=== PATIENT | female | born 1930 | race Caucasian/White ===

== ENCOUNTER → 2016-09-17 | Outpatient (CLI) | payer MEDICARE, OTHER ==
[~2016-09-17] MED LIST: ACTOS30 MG PO; ATORVASTATIN CA80 MG PO; CENTRUM SILVER1 EAC2 PO; CITRACAL + D CA1 TA1 PO; CITRACAL200 MG PO; COQ-10200 MG PO; ECOTRIN325 MG PO; FISH OIL 1,0001 CAP PO; GABAPENTIN300 MG PO; GABAPENTIN600 MG PO; HYDRALAZINE HCL50 MG PO; HYDROCODON-ACE1 EAC1 PO; IMDUR PO; IMDUR-ER60 MG PO; LIPITOR80 MG PO; LISINOPRIL PO; LOPRESSOR PO; METOPROLOL TART25 MG PO; NAMENDA XR28 MG PO; NITROGLYCERIN0.4 MG SL; NITROQUICK0.4 MG SL; OMEPRAZOLE40 M1 PO; PERCOCET 5-3251 TAB PO; PHENERGAN25 MG PO; PRILOSEC PO; PRINIVIL40 MG PO; TRIAMCINOLONE A15 G2; TYLENOL325 M1 PO; VITAMIN D31000 UNI1 PO; ZOLOFT50 MG PO
--- NOTE | ~2016-09-17 | MY11 ---
[facility] A Service [facility] RADIOLOGY TEXT RESULTS PATIENT: EDWIGE SMITH LOCATION: [facility] : 30 UNIT #: [id number] AGE: [address]: Sheng Lam MD SEX: F ORDER DR: [id number] [facility] [address] [place], [place] [address] [id number] O MR#: [id number] Acc #: [id number] NAME: EDWIGE SMITH : 1930 SEX: F STUDY DATE/TIME: 09/17/2016 14:52 UNIT: [facility] ROOM: STUDY DESCRIPTION: MY Mammogram Screening Dig Juanito Attending Physician: Sheng Lam M.D. Referring Physician: Sheng Lam M.D. Ordering Physician: Sheng Lam M.D. Primary Care Physician: Sheng Lam M.D. MEDICAL IMAGING REPORT This report is preliminary unless electronic signature is present EXAM Bilateral digital screening mammogram with CAD 09/17/2016. HISTORY An 86-year-old female with no personal history of breast cancer. Positive family history of breast cancer. FINDINGS Background breast parenchyma consists of scattered fibroglandular densities. No suspicious mass, microcalcification, architectural distortion. The exam is compared to prior mammogram dated 09/15/2015. IMPRESSION Negative mammogram. BIRADS 1. RECOMMENDATIONS Annual screening mammogram Patients over the age of 40 are entered into a reminder system with target due date for the next mammogram. A result letter will also be sent to the patient. BIRADS: 1 Negative Dictated by... Thai Moise M.D. THIS IS AN ELECTRONICALLY VERIFIED REPORT Thai Moise M.D. at 09/18/2016 9:03 AM STEFF/vki [facility] A Service [facility] RADIOLOGY TEXT RESULTS PATIENT: EDWIGE SMITH LOCATION: [facility] : 30 UNIT #: [id number] AGE: [address]: Sheng Lam MD SEX: F ORDER DR: TD: 09/18/2016 00:34 JOB #: [id number] MEDICAL IMAGING REPORT Page 1 of 1 COPY
== END | disposition home or self-care (01) ==
LOC: CWCC 14:32
DX: Z12.31 Encounter for screening mammogram for malignant neoplasm of breast (principal); Z80.3 Family history of malignant neoplasm of breast
CPT/HCPCS: G0202

== ENCOUNTER → 2016-12-31 | Day surgery (SDC) | payer MEDICARE, OTHER ==
--- NOTE | ~2016-12-31 | OR ---
Unit #: [id number] #: [id number] Patient: EDWIGE SMITH [id number] [address] [place], [place] [address] [id number] O MR#: [id number] NAME: EDWIGE SMITH ROOM: Date of Procedure: 12/31/2016 Admission Date: 12/31/2016 Surgeon: Guru Yanez M.D. : 1930 Attending Physician: Guru Yanez M.D. Primary Care Physician: Sheng Lam M.D. 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 NAME OF PROCEDURE Excisional biopsy of a 4 cm posterior neck sebaceous cyst extending down into the posterior neck musculature and fascia. ANESTHESIA Local anesthetic with conscious sedation of 2 mg of morphine and 2 mg Versed. ESTIMATED BLOOD LOSS 20 mL. INDICATIONS FOR PROCEDURE Ms. Smith is a pleasant 86-year-old female, who had had a sebaceous cyst removed from her neck 10 years ago. She presented to my office with a very large recurrence that appeared to be infected. She was started on antibiotics and scheduled for an elective drainage and debridement, but in the interim, the infection progressed and she began to spontaneously drain and came back to the office. In the office, I was able to evacuate the acute infection as well as most of the sebum, but could not completely debride the cyst wall, so her antibiotics were continued along with local care, and she is brought in today for definitive resection of the cyst wall to prevent future recurrence. DESCRIPTION OF PROCEDURE The patient was admitted to [facility], positively identified transported to the operating room, and after appropriate monitoring and positioning, she was positioned in the lateral position with the affected left side of the neck elevated and exposed. She received Kefzol weight based IV antibiotic. The wound was irrigated and then prepped and draped in usual sterile fashion. Using a probe, I evaluated the extent of the cyst wall and then 1% lidocaine with epinephrine was infiltrated to create a field block. All this was being done, she received conscious sedation of 2 mg of morphine and 2 mg of Versed. The patient was very comfortable with this sedation. After field block had been performed and the extent of the cyst wall determined, a wedge excision to clean tissues was made around the cyst wall and we Unit #: [id number] #: [id number] Patient: EDWIGE SMITH dissected down to the muscular fascia and the muscle to completely excise the cyst wall en bloc. The clean open wound was then irrigated. Hemostasis was obtained. More local anesthetic was infiltrated for postop pain control to a total of 30 mL of 1% lidocaine with epinephrine. The deep tissue layers were closed with interrupted 3-0 Vicryl suture and the skin was reapproximated with 3-0 nylon vertical mattress sutures. Dry sterile dressing of Telfa and Tegaderm was placed. Sponges and needle counts were correct x3. The patient tolerated the procedure well and transferred to the Recovery in stable condition. Findings and postoperative instructions were discussed with her daughter. Dictated by... Jg Guevara/maylin TD: 12/31/2016 12:04 JOB #: [id number] OPERATIVE REPORT Page 1 of 1 X Guru Yanez MD X PROCEDURE OPERATIVE NOTE
== END | disposition home or self-care (01) ==
LOC: CSUR 05:26
DX: L72.0 Epidermal cyst (principal); L98.499 Non-pressure chronic ulcer of skin of other sites with unspecified severity; L08.9 Local infection of the skin and subcutaneous tissue, unspecified; K21.9 Gastro-esophageal reflux disease without esophagitis; E11.9 Type 2 diabetes mellitus without complications; Z79.84 Long term (current) use of oral hypoglycemic drugs; Z79.899 Other long term (current) drug therapy; Z98.61 Coronary angioplasty status; Z90.710 Acquired absence of both cervix and uterus; Z90.49 Acquired absence of other specified parts of digestive tract; Z98.41 Cataract extraction status, right eye; Z98.42 Cataract extraction status, left eye; Z96.1 Presence of intraocular lens; Z98.890 Other specified postprocedural states
CPT/HCPCS: 82947; 88304; J0690; J2250; J2270